=== PATIENT | male | born 2000 | race Caucasian/White ===

== ENCOUNTER 2024-09-25 15:25 | Outpatient (CLI) | payer SELFPAY ==
[2024-09-25 19:43] LABS: Coronavirus 19, PCR Not Detected (NotDetected); Human Rhinovirus Not Detected (NotDetected); Influenza A, PCR Not Detected (NotDetected); Influenza B, PCR Not Detected (NotDetected); Respiratory Syncytial Virus Not Detected (NotDetected)
== END 2024-09-25 23:59 | disposition home or self-care (01) ==
LOC: LAB.DROPOF 09-26 16:20
PROVIDERS: PCP Nurse Practitioner; Visit Provider Nurse Practitioner
DX: J06.9 Acute upper respiratory infection, unspecified (principal); R05.9 Cough, unspecified
CPT/HCPCS: 87631